=== PATIENT | male | born 1970 | race Two or more races ===

== ENCOUNTER 2019-10-05 23:53 | Inpatient (IN) | payer MEDICAID, OTHER ==
[~2019-10-05] VITALS: Ht 175.3 cm; Wt 84.7 kg
[2019-10-06] MEDS ORDERED: SODIUM CHLORIDE 0.9% 1,000 ML IV ONE ×2 (00:16)
[2019-10-06] MEDS ORDERED: MAGNESIUM SULFATE 1GM/100ML 100 ML IV ONE (00:30)
[2019-10-06] MEDS ORDERED: ZINC SULFATE 220mg CAP or TAB PO ONE (00:30)
[2019-10-06] MEDS ORDERED: DexAMETHasone SOD PHOS 10MG/1ML VIAL INJ IV ONE (00:30)
[2019-10-06] MEDS ORDERED: DOXYCYCLINE 100 MG TAB/CAP PO ONE (00:30)
[2019-10-06] MEDS ORDERED: ASCORBIC ACID 500 MG TAB PO ONE (00:30)
[2019-10-06] MEDS ORDERED: HYDROcodone-ACET 5/325MG TAB PO PRN (01:45)
[2019-10-06] MEDS ORDERED: ACETAMINOPHEN 325 MG TAB PO PRN (01:45)
[2019-10-06] MEDS ORDERED: DOCUSATE SOD 100 MG CAP PO PRN (01:45)
[2019-10-06] MEDS ORDERED: ONDANSETRON HCL 4 MG/2 ML VIAL IV PRN (01:45)
[2019-10-06] MEDS ORDERED: MORPHINE SULF INJ 2 MG/ML SYRINGE 1ML IV PRN (01:45)
[2019-10-06] MEDS ORDERED: ACETAMINOPHEN 500 MG TAB PO PRN (01:45)
[2019-10-06] MEDS ORDERED: LORazepam 0.5 MG TAB PO PRN (01:45)
[2019-10-06 04:14] LABS: Basophils # (auto) 0 10 ^3/uL (0-0.2); Basophils % (auto) 0.3 % (0.0-2.0); Eosinophils # (auto) 0 10 ^3/uL (0-0.8); Hematocrit 41.6 % (41.0-53.0); Hemoglobin 14.1 g/dL (13.5-17.5); Lymphocytes # (auto) 0.2 10 ^3/uL (0.4-5.4); Lymphocytes % (auto) 1.9 % (10.0-50.0); Mean Corpuscular Hemoglobin 30.2 pg (28.0-32.0); Mean Corpuscular Hgb Conc. 33.8 g/dL (32.0-36.0); Mean Corpuscular Volume 89.6 fL (80.0-100.0); Monocytes # (auto) 0.3 10 ^3/uL (0-1.3); Monocytes % (auto) 3.3 % (0.0-12.0); Neutrophils # (auto) 8.6 10 ^3/uL (1.6-8.6); Neutrophils % (auto) 94.5 % (37.0-80.0); Platelet Count (auto) 174 10^3/uL (140-450); Red Blood Cells 4.65 10^6/uL (4.5-5.90); Red Cell Distribution Width 13.2 % (11.8-14.3); White Blood Cell 9.1 10^3/uL (4.4-10.8)
[2019-10-06 04:34] LABS: Albumin 2.8 g/dL (3.4-5.0); Anion Gap 7 (5-15); Blood Urea Nitrogen 20 mg/dL (7-18); Calcium 7.8 mg/dL (8.5-10.1); Carbon Dioxide 25 mmol/L (21-32); Chloride 102 mmol/L (98-107); Glucose 134 mg/dL (74-106); Potassium 3.4 mmol/L (3.5-5.1); Sodium 134 mmol/L (136-145)
[2019-10-06 04:41] LABS: Alanine Aminotransferase 42 U/L (16-61); Alkaline Phosphatase 59 U/L (45-117); Aspartate Aminotransferase 51 U/L (15-37); BUN/Creatinine Ratio 23.3; Bilirubin, Total 0.7 mg/dL (0.2-1.0); GFR African American 121 mL/min; GFR Non-African American 100 mL/min; Lactate Dehydrogenase 391 U/L (87-241); Total Protein 7.2 g/dL (6.4-8.2)
[2019-10-06 05:17] LABS: CRP High Sensitivity 34.68 mg/dL (< 0.3)
[2019-10-06] MEDS: ALBUTEROL SULF HFA 90MCG INH 200DOSE IN SCH ×3 (07:15→21:30)
[2019-10-06] MEDS: SODIUM CHLORIDE 0.9% 1,000 ML IV SCH ×2 (09:00→18:25)
[2019-10-06 09:04] VITALS: BP 139/80
[2019-10-06] MEDS ORDERED: POTASSIUM EFFERVESENT TAB 25 MEQ PO ONE (09:15)
[2019-10-06] MEDS: DOXYCYCLINE 100 MG TAB/CAP PO SCH ×2 (10:03→22:13)
[2019-10-06] MEDS: ASCORBIC ACID 1,000 MG TAB PO SCH (10:03)
[2019-10-06] MEDS: ZINC SULFATE 220mg CAP or TAB PO SCH (10:03)
[2019-10-06] MEDS: ENOXAPARIN SOD 40 MG/0.4 ML SYRINGE SC SCH (10:05)
[2019-10-06] MEDS: CHOLECALCIFEROL (VITD3) 1,000UNIT=25mCg TAB PO SCH (10:05)
[2019-10-06] MEDS: DexAMETHasone SOD PHOS 10MG/1ML VIAL INJ IV SCH ×2 (10:45→22:13)
[2019-10-06 20:28] LABS: Urine Bacteria NONE SEEN /hpf (None Seen); Urine Blood Negative /uL (Negative); Urine Specific Gravity 1.031 (1.001-1.035); Urine WBC <1 /hpf (0 - 3)
[2019-10-07 06:42] LABS: Basophils # (auto) 0 10 ^3/uL (0-0.2); Basophils % (auto) 0.2 % (0.0-2.0); Eosinophils # (auto) 0 10 ^3/uL (0-0.8); Hematocrit 41.6 % (41.0-53.0); Lymphocytes # (auto) 0.3 10 ^3/uL (0.4-5.4); Lymphocytes % (auto) 3.2 % (10.0-50.0); Mean Corpuscular Hemoglobin 30.3 pg (28.0-32.0); Mean Corpuscular Hgb Conc. 33.7 g/dL (32.0-36.0); Mean Corpuscular Volume 89.9 fL (80.0-100.0); Monocytes # (auto) 0.6 10 ^3/uL (0-1.3); Monocytes % (auto) 6.1 % (0.0-12.0); Neutrophils # (auto) 8.3 10 ^3/uL (1.6-8.6); Neutrophils % (auto) 90.5 % (37.0-80.0); Nucleated Red Blood Cells % 0.3 %; Platelet Count (auto) 210 10^3/uL (140-450); Red Blood Cells 4.63 10^6/uL (4.5-5.90); Red Cell Distribution Width 13.4 % (11.8-14.3); White Blood Cell 9.2 10^3/uL (4.4-10.8)
[2019-10-07 07:02] LABS: Albumin 2.6 g/dL (3.4-5.0); Calcium 8.3 mg/dL (8.5-10.1); Potassium 3.5 mmol/L (3.5-5.1)
[2019-10-07 07:08] LABS: Bilirubin, Total 0.5 mg/dL (0.2-1.0); Total Protein 6.9 g/dL (6.4-8.2)
--- NOTE | 2019-10-07 07:45 | NUR ---
Respiratory note: PATIENT PLACED ON RENTAL BIPAP FITTED WITH A MEDIUM FULL FACE MASK AND VENTILATED WITH THE CHARTED SETTINGS. SPO2 90%, LUNG SOUNDS DIM T/O. PATIENT TOLERATING BIPAP FAIR. BIPAP PLUGGED INTO RED OUTLET AND ALL ALARMS ARE SET AND AUDIBLE. WILL CONTINUE TO ASSESS PATIENT WELL BIPAP FUNCTION.
[2019-10-07 07:48] VITALS: BP 128/72
[2019-10-07] MEDS: ALBUTEROL SULF HFA 90MCG INH 200DOSE IN SCH ×3 (07:50→22:15)
[2019-10-07 10:27] VITALS: BP 126/72
[2019-10-07] MEDS ORDERED: POTASSIUM CHL 10 Meq TABLET PO ONE (11:15)
[2019-10-07] MEDS ORDERED: FUROSEMIDE 20 MG/2 ML VIAL IV ONE (11:15)
[2019-10-07] MEDS ORDERED: cefTRIAXone 1GM/50ML D5W 50 ML IV ONE (11:15)
[2019-10-07] MEDS: ENOXAPARIN SOD 40 MG/0.4 ML SYRINGE SC SCH (11:31)
[2019-10-07] MEDS: DOXYCYCLINE 100 MG TAB/CAP PO SCH ×2 (11:32→22:23)
[2019-10-07] MEDS: ZINC SULFATE 220mg CAP or TAB PO SCH (11:32)
[2019-10-07] MEDS: ASCORBIC ACID 1,000 MG TAB PO SCH (11:32)
[2019-10-07] MEDS: CHOLECALCIFEROL (VITD3) 1,000UNIT=25mCg TAB PO SCH (11:33)
[2019-10-07 14:27] VITALS: BP 131/68
--- NOTE | 2019-10-07 19:05 | NUR ---
Respiratory note: PT TAKEN OFF BIPAP AT THIS TIME SO THAT HE CAN EAT HIS DINNER TRAY. PLACED PT ON A 10L OXYMIZER, SP02 IS HOLDING AT 91-93%. NO DISTRESS NOTED AT AT THIS TIME. RN AWARE.
[2019-10-07 20:10] VITALS: BP 131/68
[2019-10-07 22:15] VITALS: BP 117/65
[2019-10-07] MEDS: DexAMETHasone 4 MG TAB PO SCH (22:23)
[2019-10-07] MEDS: cefTRIAXone 1GM/50ML D5W 50 ML IV SCH (22:23)
[2019-10-08 00:05] VITALS: BP 117/65
[2019-10-08 02:28] VITALS: BP 121/75
[2019-10-08] MEDS: ALBUTEROL SULF HFA 90MCG INH 200DOSE IN SCH ×3 (06:20→22:25)
--- NOTE | 2019-10-08 06:20 | NUR ---
Respiratory note: PT TAKEN OFF OF BIPAP, AND PLACED ON 12L OXYMIZER. SPO2 92% ON 82% FIO2, HR 61, RR 22, BS CLEAR/DIMINISHED BILATERALLY. PT GIVEN 1 PUFF ALBUTEROL (90MCG) GIVEN VIA MDI WITH CHAMBER. NO ADVERSE EFFECTS NOTED. PT STATED THAT HER PREFERS THE OXYMIZER, AND DOESN'T LIKE TO BIPAP MACHINE. PT TOLERATED CHANGE WELL. RN AWARE. WILL CONTINUE TO MONITOR PT.
[2019-10-08] MEDS: cefTRIAXone 1GM/50ML D5W 50 ML IV SCH ×2 (09:14→21:16)
[2019-10-08] MEDS: FUROSEMIDE 20 MG/2 ML VIAL IV SCH (09:56)
[2019-10-08] MEDS: ZINC SULFATE 220mg CAP or TAB PO SCH (09:57)
[2019-10-08] MEDS: DexAMETHasone 4 MG TAB PO SCH ×2 (09:58→22:18)
[2019-10-08] MEDS: POTASSIUM CHL 10 Meq TABLET PO SCH (10:00)
[2019-10-08] MEDS: ASCORBIC ACID 1,000 MG TAB PO SCH (10:01)
[2019-10-08] MEDS: DOXYCYCLINE 100 MG TAB/CAP PO SCH ×2 (10:01→22:17)
[2019-10-08] MEDS: CHOLECALCIFEROL (VITD3) 1,000UNIT=25mCg TAB PO SCH (10:01)
[2019-10-08] MEDS: ENOXAPARIN SOD 40 MG/0.4 ML SYRINGE SC SCH (10:02)
[2019-10-08] MEDS: hydrOXYchloroQUINE SULFATE 200 MG TAB PO SCH ×2 (11:15→22:18)
[2019-10-09] MEDS: ALBUTEROL SULF HFA 90MCG INH 200DOSE IN SCH ×3 (06:14→21:09)
[2019-10-09] MEDS: cefTRIAXone 1GM/50ML D5W 50 ML IV SCH ×2 (09:30→21:32)
[2019-10-09 09:41] VITALS: BP 123/78
[2019-10-09] MEDS: ZINC SULFATE 220mg CAP or TAB PO SCH (10:30)
[2019-10-09] MEDS: ASCORBIC ACID 1,000 MG TAB PO SCH (10:30)
[2019-10-09] MEDS: DexAMETHasone 4 MG TAB PO SCH (10:30)
[2019-10-09] MEDS: DOXYCYCLINE 100 MG TAB/CAP PO SCH ×2 (10:30→22:21)
[2019-10-09] MEDS: CHOLECALCIFEROL (VITD3) 1,000UNIT=25mCg TAB PO SCH ×2 (10:30→11:32)
[2019-10-09] MEDS: hydrOXYchloroQUINE SULFATE 200 MG TAB PO SCH ×2 (10:30→22:21)
[2019-10-09] MEDS: POTASSIUM CHL 10 Meq TABLET PO SCH (10:30)
[2019-10-09] MEDS: FUROSEMIDE 20 MG/2 ML VIAL IV SCH (11:28)
[2019-10-09] MEDS: ENOXAPARIN SOD 40 MG/0.4 ML SYRINGE SC SCH ×2 (11:28→22:22)
[2019-10-09] MEDS ORDERED: IPRATROPIUM IN SCH (14:00)
[2019-10-09] MEDS ORDERED: ALBUTEROL IN SCH (14:00)
[2019-10-09] MEDS: DexAMETHasone SOD PHOS 4 MG/1ML SDV INJ IV SCH (22:21)
[2019-10-10] VITALS (7 sets, daily range): BP systolic 94–110; BP diastolic 63–75
[2019-10-10] MEDS: ALBUTEROL SULF HFA 90MCG INH 200DOSE IN SCH ×3 (06:50→22:21)
[2019-10-10] MEDS: cefTRIAXone 1GM/50ML D5W 50 ML IV SCH ×2 (07:53→20:24)
[2019-10-10 08:14] LABS: Hematocrit 48.2 % (41.0-53.0); Hemoglobin 15.8 g/dL (13.5-17.5); Mean Corpuscular Hemoglobin 29.9 pg (28.0-32.0); Mean Corpuscular Hgb Conc. 32.9 g/dL (32.0-36.0); Mean Corpuscular Volume 90.9 fL (80.0-100.0); Platelet Count (auto) 296 10^3/uL (140-450); Red Cell Distribution Width 13.3 % (11.8-14.3); White Blood Cell 8.2 10^3/uL (4.4-10.8)
[2019-10-10 08:16] LABS: Basophils % (manual) 0 (0.0-2.0); Blast Cells 0; Eosinophils % (manual) 0 (0-7); Metamyelocytes % 0; Myelocytes % 0; Promyelocytes % 0; Reactive Lymphocytes 0
[2019-10-10 08:28] LABS: Band Neutrophils % (manual) 1; Lymphocytes % (manual) 13 (10.0-50.0); Monocytes % (manual) 10 (0-12)
[2019-10-10 08:30] LABS: Albumin 2.6 g/dL (3.4-5.0); Calcium 8.6 mg/dL (8.5-10.1); Potassium 4.5 mmol/L (3.5-5.1)
[2019-10-10 08:38] LABS: BUN/Creatinine Ratio 49.3; Bilirubin, Total 0.7 mg/dL (0.2-1.0); CRP High Sensitivity 5.75 mg/dL (< 0.3); Total Protein 7.3 g/dL (6.4-8.2)
[2019-10-10] MEDS: FUROSEMIDE 20 MG/2 ML VIAL IV SCH (10:55)
[2019-10-10] MEDS: DexAMETHasone SOD PHOS 4 MG/1ML SDV INJ IV SCH ×2 (10:55→21:18)
[2019-10-10] MEDS: DOXYCYCLINE 100 MG TAB/CAP PO SCH ×2 (10:56→21:18)
[2019-10-10] MEDS: POTASSIUM CHL 10 Meq TABLET PO SCH (10:56)
[2019-10-10] MEDS: ZINC SULFATE 220mg CAP or TAB PO SCH (10:56)
[2019-10-10] MEDS: ENOXAPARIN SOD 40 MG/0.4 ML SYRINGE SC SCH ×2 (10:56→21:18)
[2019-10-10] MEDS: hydrOXYchloroQUINE SULFATE 200 MG TAB PO SCH (10:56)
[2019-10-10] MEDS: ASCORBIC ACID 1,000 MG TAB PO SCH (10:56)
[2019-10-10] MEDS: TOCILIZUMAB 400 MG in SODIUM CHL 0.9% 80 ML IV SCH ×2 (11:30→23:01)
[2019-10-10] MEDS ORDERED: ACETAMINOPHEN 650 mg PER 20 mL UD PO ONE ×2 (11:45→22:45)
[2019-10-10] MEDS ORDERED: diphenhdrAMINE HCL 50 MG/1 ML VL IV ONE ×2 (11:45→22:45)
[2019-10-10] MEDS ORDERED: methylPREDNISolone SOD SUCC 40 MG/ML VL IV ONE ×2 (11:45→22:45)
[2019-10-10] MEDS ORDERED: IPRATROPIUM-ALBUTEROL 20mCg/100mCg INHALER IN SCH (14:00)
[2019-10-10] MEDS ORDERED: REMDESIVIR 200 MG in NS 210ml LOADING DOSE ADULT IV ONE ×2 (14:00→18:00)
--- NOTE | 2019-10-10 14:15 | NUR ---
Admit to [facility] admitted to [facility] via gurney on environmental monitoring specialist, and portable 02. Patient transfered to bed, connected to unit monitoring and high flow oxygen at 45L 90%, and weighed by bedscale. Patient oriented to RUI LIU, primary RN, unit, room, bed, and unit policies regarding patient care and visiting hours. Patient is on Novel Respiratory Isolation for COVID19. Bed in lowest posion, rails up x3 and call light/phone within reach. All questions and concerns addressed, patient verbalized understanding. Vital signs on admit: HR 73 BP 110/75 RR 20 O2sat 93% on high flow 45L 90%, TEMP 97.7F orally.
--- NOTE | 2019-10-10 18:54 | NUR ---
END OF SHIFT NOTE Patient resting in bed after eating dinner; no s/s of distress. Patient remains on high flow oxygen, 45L 90% with O2 sats 91%. Patient received first dose of Remdesivir in right hand #20 with no s/s of distress. Report to be given to NOC Ibis ZHENG.
--- NOTE | 2019-10-10 19:30 | NUR ---
OPENING NOTE REPORT RECEIVED FROM MYLES RN. THIS IS A POSITIVE COVID PATIENT ON NOVEL RESPIRATORY ISOLATION. PATIENT IS A/OX4, SLOVENIAN SPEAKING, CONNECTED TO CONTINUOUS BEDSIDE MONITORS. PATIENT IS ON HIGH FLOW NASAL CANNULA 45L, FIO2 90%, NO SOB OR DISTRESS AT THIS TIME. PHYSICAL ASSESSMENT DONE-SEE INTERVENTIONS. IV TO RIGHT HAND 20G INTACT AND PATENT. PATIENT ABLE TO TURN AND REPOSITION SELF IN BED. POC DISCUSSED, ALL QUESTIONS ANSWERED. CALL LIGHT WITHIN REACH.
[2019-10-10] MEDS ORDERED: [UNRECOGNIZED DRUG - OTHER] IV SCH (22:00)
--- NOTE | 2019-10-10 23:20 | NUR ---
FAMILY FAMILY MEMBER BJORN CALLED. CORRECT PASSWORD PROVIDED. UPDATE ON PATIENT STATUS GIVEN. ALL QUESTIONS/CONCERNS ADDRESSED.
[2019-10-11] VITALS (10 sets, daily range): BP systolic 96–115; BP diastolic 70–84
[2019-10-11 03:57] LABS: Albumin 2.5 g/dL (3.4-5.0); Calcium 8.5 mg/dL (8.5-10.1); Potassium 4.8 mmol/L (3.5-5.1)
[2019-10-11 04:00] LABS: BUN/Creatinine Ratio 52.6; Bilirubin, Total 0.6 mg/dL (0.2-1.0); Total Protein 7.3 g/dL (6.4-8.2)
[2019-10-11] MEDS: ALBUTEROL SULF HFA 90MCG INH 200DOSE IN SCH ×3 (06:05→22:25)
--- NOTE | 2019-10-11 06:55 | NUR ---
CLOSING PATIENT AWAKE AND RESTING COMFORTABLY IN BED CONNECTED TO CONTINUOUS BEDSIDE MONITORS. HIGH FLOW NASAL CANNULA AT 45L, FIO2 80%. NO SOB OR DISTRESS NOTED. CALL LIGHT WITHIN REACH. WILL ENDORSE CARE TO AM SHIFT MARCE JOHN.
[2019-10-11] MEDS: DexAMETHasone SOD PHOS 4 MG/1ML SDV INJ IV SCH ×2 (09:05→21:03)
[2019-10-11] MEDS: cefTRIAXone 1GM/50ML D5W 50 ML IV SCH ×2 (09:05→21:03)
[2019-10-11] MEDS: FUROSEMIDE 20 MG/2 ML VIAL IV SCH (09:05)
[2019-10-11] MEDS: POTASSIUM CHL 10 Meq TABLET PO SCH (09:06)
[2019-10-11] MEDS: ZINC SULFATE 220mg CAP or TAB PO SCH (09:06)
[2019-10-11] MEDS: ENOXAPARIN SOD 40 MG/0.4 ML SYRINGE SC SCH (09:07)
[2019-10-11] MEDS: ASCORBIC ACID 1,000 MG TAB PO SCH (09:07)
[2019-10-11] MEDS: CHOLECALCIFEROL (VITD3) 1,000UNIT=25mCg TAB PO SCH (09:07)
--- NOTE | 2019-10-11 13:39 | NUR ---
assessment Patient is a 49 year old male who is alert and oriented. Patients cognitive abilities are intact. Prior to admission patient lived home with family and functioned independently. Patient informed me he is able to care for his own ADLs. Per patient he will return home to his prior living arrangements post discharge and family will transport him home. Patient is Covid positive. Patients is also positive in room 245a. I informed patient i will continue to monitor his progress for home oxygen needs. Patients discharge needs to be determined closer to discharge. I informed patient he has a right to speak to a social insurance analyst regarding all care. I informed patient he has a right to participate in any and all discharge planning. Patient does not have a POA and advanced directive. I have offered patient information on POA and advanced directives. I informed the patient the advantages and benefits of having an Advanced Directive. Patient verbalized understanding and agreed to discharge plan. Addendum: 10/11/19 at 1342 by Chitra MORILLO Amended: Links added.
--- NOTE | 2019-10-11 13:50 | NUR ---
Respiratory note: FINAL HFNC CHECK. TITRATED FIO2 TO 70%. PT TOLERATING WELL. PT RECEIVED MDI TX, NO ADVERSE REACTION NOTED. GANESH WATER LEVEL ADEQUATE. WILL ENDORSE PT'S CARE TO NOC RT.
--- NOTE | 2019-10-11 14:38 | NUR ---
Nutrition Assessment Notes Please refer to link for full assessment notes. Est Energy needs: 9213-9324 kcals (20-23 kcal/kgBW) Est Protein needs: 66-83 gms/day (0.8-1.0 gm/kgBW) Will continue to monitor and reassess prn. Addendum: 10/11/19 at [address] Amended: Links added.
[2019-10-11] MEDS: REMDESIVIR 100mg in NS 230ml DAILYx4DAYS (NO VENT) IV SCH (17:27)
--- NOTE | 2019-10-11 17:48 | NUR ---
PT EDUCATION INFORMED MD ORDER FOR PRONE POSITION AND EDUCATED IS USE. PT DEMONSTRATED UNDERSTANDING.
--- NOTE | 2019-10-11 19:30 | NUR ---
OPENING NOTE REPORT RECEIVED FROM MYLES RN. THIS IS A POSITIVE COVID PATIENT ON NOVEL RESPIRATORY ISOLATION. PATIENT IS A/OX4, MALTESE SPEAKING, CONNECTED TO CONTINUOUS BEDSIDE MONITORS. PATIENT IS ON HIGH FLOW NASAL CANNULA 45L, FIO2 70%, NO SOB OR DISTRESS AT THIS TIME. PHYSICAL ASSESSMENT DONE-SEE INTERVENTIONS. IV TO RIGHT HAND 20G INTACT AND PATENT. PATIENT ABLE TO TURN AND REPOSITION SELF IN BED. POC DISCUSSED, ALL QUESTIONS ANSWERED. CALL LIGHT WITHIN REACH
[2019-10-12] VITALS (13 sets, daily range): BP systolic 99–121; BP diastolic 70–86
[2019-10-12 04:22] LABS: Albumin 2.7 g/dL (3.4-5.0); Calcium 8.5 mg/dL (8.5-10.1); Potassium 4.5 mmol/L (3.5-5.1)
[2019-10-12 04:26] LABS: BUN/Creatinine Ratio 59.5; Bilirubin, Total 0.6 mg/dL (0.2-1.0); Total Protein 7.5 g/dL (6.4-8.2)
--- NOTE | 2019-10-12 05:26 | NUR ---
AM CARE OFFERED PATIENT AM CARES SUCH LINEN AND GOWN CHANGE. PATIENT REFUSED AT THIS TIME. LEFT LINENS AND GOWN AT BEDSIDE FOR A LATER TIME. EDUCATED PATIENT TO CALL WHEN HE IS READY FOR A LINEN CHANGE.
[2019-10-12] MEDS: ALBUTEROL SULF HFA 90MCG INH 200DOSE IN SCH ×3 (06:21→22:27)
--- NOTE | 2019-10-12 06:47 | NUR ---
CLOSING PATIENT AWAKE, RESTING IN BED AND CONNECTED TO CONTINUOUS BEDSIDE MONITORS. PATIENT STILL ON HIGH FLOW 45L, FIO2 70%. NO SIGNS OF SOB OR DISTRESS. CALL LIGHT WITHIN REACH. WILL ENDORSE CARE TO DAYSHIFT RN.
--- NOTE | 2019-10-12 07:48 | NUR ---
OPENING SHIFT NOTE PATIENT SITTING UP IN BED WATCHING TELEVISION, NO DISTRESS NOTED, RESPIRATIONS EVEN AND UNLABORED - CURRENTLY ON HIGH FLOW AT 45 LITERS AND 70% FIO2. PATIENT DENIES PAIN OR DISCOMFORT AT THIS TIME - ONLY REQUESTING ICE WATER. FALL AND SAFETY PRECAUTIONS IN PLACE, ALL PERSONAL BELONGINGS WITHIN REACH. WILL CONTINUE TO MONITOR.
[2019-10-12] MEDS: ZINC SULFATE 220mg CAP or TAB PO SCH (09:38)
[2019-10-12] MEDS: ASCORBIC ACID 1,000 MG TAB PO SCH (09:38)
[2019-10-12] MEDS: CHOLECALCIFEROL (VITD3) 1,000UNIT=25mCg TAB PO SCH (09:38)
[2019-10-12] MEDS: DexAMETHasone SOD PHOS 4 MG/1ML SDV INJ IV SCH ×2 (09:39→21:01)
[2019-10-12] MEDS: cefTRIAXone 1GM/50ML D5W 50 ML IV SCH ×2 (09:39→21:01)
[2019-10-12] MEDS ORDERED: ENOXAPARIN SOD 40 MG/0.4 ML SYRINGE SC SCH (10:00)
--- NOTE | 2019-10-12 12:07 | NUR ---
PULMONOLOGY AT BEDSIDE DR DHILLON UPDATED ON PATIENT'S STATUS AND OXYGEN REQUIREMENT VIA HIGH FLOW. DOCTOR VERBALIZED UNDERSTANDING, Patti SANCHES AT BEDSIDE ALSO. ORDERS FOR DDIMER, CRP, FERRITIN FOR MONDAY RECEIVED.
[2019-10-12] MEDS ORDERED: DOXYCYCLINE 100 MG TAB/CAP PO ONE (17:15)
[2019-10-12] MEDS: REMDESIVIR 100mg in NS 230ml DAILYx4DAYS (NO VENT) IV SCH (18:16)
--- NOTE | 2019-10-12 19:01 | NUR ---
END OF SHIFT NOTE PATIENT RESTING IN BED WATCHING TELEVISION CURRENTLY ON 45 LITERS AND 60% FIO2. NO DISTRESS NOTED, RESPIRATIONS EVEN AND UNLABORED. ENDORSED CONTINUED CARE TO TURF KEEPER RN.
--- NOTE | 2019-10-12 20:00 | NUR ---
OPENING NOTE REPORT RECEIVED FROM MYLES RN. THIS IS A POSITIVE COVID PATIENT ON NOVEL RESPIRATORY ISOLATION. PATIENT IS A/OX4, VIETNAMESE SPEAKING, CONNECTED TO CONTINUOUS BEDSIDE MONITORS. PATIENT IS ON HIGH FLOW NASAL CANNULA 45L, FIO2 65%, NO SOB OR DISTRESS AT THIS TIME. PHYSICAL ASSESSMENT DONE-SEE INTERVENTIONS. IV TO RIGHT HAND 20G INTACT AND PATENT. PATIENT ABLE TO TURN AND REPOSITION SELF IN BED. POC DISCUSSED, ALL QUESTIONS ANSWERED. CALL LIGHT WITHIN REACH
[2019-10-12] MEDS: ENOXAPARIN SOD 40 MG/0.4 ML SYRINGE SC SCH (21:01)
--- NOTE | 2019-10-12 21:02 | NUR ---
INCENTIVE SPIROMETER PATIENT USING IS WHILE WATCHING TV. MAX LEVEL 500, PATIENT ENCOURAGED TO TAKE DEEPER BREATHS.
--- NOTE | 2019-10-12 22:57 | NUR ---
FAMILY PATIENTS FAMILY MEMBER CALLED. CORRECT PASSWORD PROVIDED. UPDATED ON PATIENT STATUS, ALL QUESTIONS ANSWERED.
[2019-10-13] VITALS: BP 114/82
[2019-10-13 02:20] VITALS: BP 109/78
[2019-10-13 04:00] VITALS: BP 108/80
[2019-10-13 04:35] LABS: Albumin 2.8 g/dL (3.4-5.0); Calcium 8.5 mg/dL (8.5-10.1); Potassium 4.7 mmol/L (3.5-5.1)
[2019-10-13 04:37] LABS: BUN/Creatinine Ratio 48.2
[2019-10-13 04:50] LABS: Bilirubin, Total 0.8 mg/dL (0.2-1.0); Total Protein 7.2 g/dL (6.4-8.2)
--- NOTE | 2019-10-13 06:11 | NUR ---
FAMILY PATIENTS FAMILY MEMBER CALLED. CORRECT PASSWORD PROVIDED. UPDATED ON PATIENT STATUS, ALL QUESTIONS ANSWERED.
[2019-10-13 06:31] VITALS: BP 106/79
[2019-10-13] MEDS: ALBUTEROL SULF HFA 90MCG INH 200DOSE IN SCH ×3 (06:31→21:37)
--- NOTE | 2019-10-13 06:31 | NUR ---
RESP MDI GIVEN BY RT, TOLERATED WELL. PT ON HFNC.
--- NOTE | 2019-10-13 07:11 | NUR ---
CLOSING PATIENT SLEEPING, CONNECTED TO CONTINUOUS BEDSIDE MONITORS. PATIENT REMAINS ON HIGH FLOW NASAL CANNULA 45L, FIO2 65%. NO SIGNS OF DISTRESS. REPORT ENDORSED TO DAYSHIFT MARCE MENA.
--- NOTE | 2019-10-13 07:35 | NUR ---
OPENING SHIFT NOTE PATIENT RESTING IN BED WITH EYES CLOSED, NO DISTRESS NOTED, RESPIRATIONS EVEN AND UNLABORED. PATIENT CURRENTLY ON HIGH FLOW 45 LITERS AND 65% FIO2, VSS AND DOCUMENTED. FALL, SAFETY AND ISOLATION PRECAUTIONS IN PLACE, ALL PERSONAL BELONGINGS WITHIN REACH INCLUDING CALL LIGHT. WILL CONTINUE TO MONITOR.
[2019-10-13] MEDS: DexAMETHasone SOD PHOS 4 MG/1ML SDV INJ IV SCH ×2 (09:40→22:00)
[2019-10-13] MEDS: cefTRIAXone 1GM/50ML D5W 50 ML IV SCH ×2 (09:40→20:49)
[2019-10-13] MEDS: ASCORBIC ACID 1,000 MG TAB PO SCH (09:40)
[2019-10-13] MEDS: ZINC SULFATE 220mg CAP or TAB PO SCH (09:40)
[2019-10-13] MEDS: DOXYCYCLINE 100 MG TAB/CAP PO SCH ×2 (09:40→22:00)
[2019-10-13] MEDS: CHOLECALCIFEROL (VITD3) 1,000UNIT=25mCg TAB PO SCH (09:41)
[2019-10-13] MEDS: ENOXAPARIN SOD 40 MG/0.4 ML SYRINGE SC SCH ×2 (09:41→22:00)
[2019-10-13 10:05] VITALS: BP 16/110
--- NOTE | 2019-10-13 13:00 | NUR ---
HOSPITALIST/PULMONOLOGY AT NURSE STATION DR GARZA AND DR DHILLON BOTH UPDATED ON PATIENT'S STATUS AND OXYGENATION REQUIREMENT OF 45 LITERS AND 65%. DOCTOR'S ALSO AWARE OF PATIENT REPORTING ACID REFLUX AND HICCUPS. DR GARZA ORDERED PROTONIX 40 MG IV DAILY WITH ONE DOSE NOW AND "WE WILL CONTINUE TO MONITOR THE HICCUPS". DR DAI ORDERED CONTINUED TITRATION OF OXYGENATION, HE SPOKE WITH Patti CANELA
--- NOTE | 2019-10-13 14:25 | NUR ---
RESP TITRATED HFNC TO 4OL 55% FIO2, MARCE MENA MADE AWARE OF CHANGES. PT TOLERATING CHANGES WELL. MDI GIVEN BY RT, TOLERATED WELL. WILL CONTINUE TO MONITOR ORDERED.
--- NOTE | 2019-10-13 15:30 | NUR ---
Family updated on pt status Family of [facility] updated on patient's status and condition after password verification. All questions and concerns addressed. Sister in law Elsie verbalized understanding.
[2019-10-13] MEDS ORDERED: PANTOPRAZOLE 40 MG/10 ML VIAL INJ IV ONE (17:15)
[2019-10-13] MEDS: REMDESIVIR 100mg in NS 230ml DAILYx4DAYS (NO VENT) IV SCH (17:59)
--- NOTE | 2019-10-13 19:10 | NUR ---
OPENING SHIFT RECEIVED REPORT FROM DAY SHIFT RN. ASSUMED CARE OF PATIENT. PATIENT IN BED EATING DINNER WITH NO SIGNS OR SYMPTOMS OF SOB, PAIN OR DISTRESS. CURRENTLY ON HIGH FLOW 40L / 55% FI02, 02 SAT - 96%. RIGHT HAND IV - CLEAN/DRY/INTACT. UPDATED PATIENT ON PLAN OF CARE. REPOSITIONED FOR COMFORT. BED IN LOWEST POSITION, SIDE RAILS UP X2. CALL LIGHT WITHIN REACH. WILL CONTINUE TO MONITOR.
--- NOTE | 2019-10-13 19:25 | NUR ---
Respiratory note: AT BEDSIDE IN FULL PPE, PT REMOVED FROM HIGH FLOW NASAL AND PLACED ON 12L OXYMIZER, RN AWARE. PT PRESENTING NO SIGNS OF RESPIRATORY DISTRESS. HR 72, SPO2 97% ON 82% FIO2, RR 20. WILL TITRATE FIO2 TOLERATED AND CONTINUE TO MONITOR.
[2019-10-13 20:00] VITALS: BP 115/72
[2019-10-14] VITALS (7 sets, daily range): BP systolic 80–117; BP diastolic 49–85
--- NOTE | 2019-10-14 03:00 | NUR ---
Respiratory note: FIO2 TITRATED TO 11L VIA OXYMIZER, RN AWARE. PT TOLERATING WELL. SPO2 NOTED 94%
[2019-10-14 04:22] LABS: Hemoglobin 18.3 g/dL (13.5-17.5)
[2019-10-14 04:27] LABS: Hematocrit 54.4 % (41.0-53.0); Mean Corpuscular Hemoglobin 30.4 pg (28.0-32.0); Mean Corpuscular Hgb Conc. 33.6 g/dL (32.0-36.0); Mean Corpuscular Volume 90.5 fL (80.0-100.0); Platelet Count (auto) 320 10^3/uL (140-450); Red Cell Distribution Width 13.3 % (11.8-14.3); White Blood Cell 9.2 10^3/uL (4.4-10.8)
[2019-10-14 04:35] LABS: Potassium 4.3 mmol/L (3.5-5.1)
[2019-10-14 04:42] LABS: Albumin 2.7 g/dL (3.4-5.0); BUN/Creatinine Ratio 42.6; Bilirubin, Total 0.7 mg/dL (0.2-1.0)
[2019-10-14 04:56] LABS: Basophils % (manual) 0 (0.0-2.0); Blast Cells 0; Eosinophils % (manual) 0 (0-7); Metamyelocytes % 0; Myelocytes % 0; Promyelocytes % 0; Reactive Lymphocytes 0
[2019-10-14 06:28] LABS: Band Neutrophils % (manual) 2; Lymphocytes % (manual) 10 (10.0-50.0); Monocytes % (manual) 10 (0-12)
[2019-10-14] MEDS: ALBUTEROL SULF HFA 90MCG INH 200DOSE IN SCH ×3 (06:53→22:08)
--- NOTE | 2019-10-14 06:53 | NUR ---
Respiratory note: PT AWAKE, AND ALERT. NO RESPIRATORY DISTRESS NOTED. SPO2 95% ON 10LM OXYMIZER 72% FIO2, HR 60, RR 19, BS CLEAR/DIMINISHED BILATERALLY. PT GIVEN 1 PUFF ALBUTEROL (90MCG) VIA MDI WITH CHAMBER. NO ADVERSE EFFECTS NOTED. NO FURTHER RESPIRATORY INTERVENTION NOTED. CHARTING COMPLETE FROM OUTSIDE OF PT ROOM PER COVID-19 PRECAUTIONS/PROTOCOL.
--- NOTE | 2019-10-14 07:20 | NUR ---
END OF SHIFT REPORT GIVEN TO DAY SHIFT RN. CARE ENDORSED.
--- NOTE | 2019-10-14 07:25 | NUR ---
REPORT REPORT RECEIVED FROM FABRICE RN, CARE ASSUMED. PT AWAKE AND ALERT WATCHING TV. NO S/S OF DISTRESS NOTED. VS STABLE AT THIS TIME.
--- NOTE | 2019-10-14 08:00 | NUR ---
INITIAL CONTACT PT OBSERVED RESTING IN HIGH FOWLERS. DENIES DISTRESS OR PAIN AT THIS TIME. AFEBRILE. VS STABLE AT THIS TIME. LUNGS CLEAR TO DIMINISHED. PT ON 10 L OXYMIZER, OXYGEN SATURATION 95%. PT EDUCATED ON IMPORTANCE OF INCENTIVE SPIROMETER EXERCISE. PT VERBALIZED UNDERSTANDING. SKIN INTACT. IV PRESENT. BED LOCKED IN LOWEST POSITION, CALL LIGHT WITHIN REACH. PT INSTRUCTED TO CALL FOR ASSISTANCE. PT VERBALIZED UNDERSTANDING. WILL CONTINUE TO MONITOR.
[2019-10-14] MEDS: cefTRIAXone 1GM/50ML D5W 50 ML IV SCH ×2 (09:02→20:30)
[2019-10-14] MEDS: DexAMETHasone SOD PHOS 4 MG/1ML SDV INJ IV SCH ×2 (09:44→22:07)
[2019-10-14] MEDS: PANTOPRAZOLE 40 MG/10 ML VIAL INJ IV SCH (09:44)
[2019-10-14] MEDS: ENOXAPARIN SOD 40 MG/0.4 ML SYRINGE SC SCH ×2 (09:45→22:06)
[2019-10-14] MEDS: DOXYCYCLINE 100 MG TAB/CAP PO SCH ×2 (09:45→22:06)
[2019-10-14] MEDS: ZINC SULFATE 220mg CAP or TAB PO SCH (09:45)
[2019-10-14] MEDS: ASCORBIC ACID 1,000 MG TAB PO SCH (09:45)
[2019-10-14] MEDS: CHOLECALCIFEROL (VITD3) 1,000UNIT=25mCg TAB PO SCH (09:45)
--- NOTE | 2019-10-14 10:20 | NUR ---
OXYGENATION PT STILL MAINTAINING OXYGEN SATURATION 95%, O2 DECREASED TO 8 L OXYMIZER. RT NOTIFIED. OXYGEN SATURATION 94%. WILL CONTINUE TO MONITOR. PT DENIES C/O PAIN OR DISTRESS AT THIS TIME.
--- NOTE | 2019-10-14 10:55 | NUR ---
MD VISIT DR.AHLUWALIA AGUILAR. MD AWARE OF OXYGEN STATUS AND CXR. ORDERS OBTAINED.
[2019-10-14] MEDS ORDERED: POTASSIUM EFFERVESENT TAB 25 MEQ PO ONE (12:30)
[2019-10-14] MEDS ORDERED: FUROSEMIDE 40 MG/4 ML VIAL IV ONE (12:30)
--- NOTE | 2019-10-14 13:59 | NUR ---
OXYGENATION PT STILL MAINTAINING OXYGEN SATURATION 95%, O2 DECREASED TO 5 L OXYMIZER. RT NOTIFIED. OXYGEN SATURATION 94%. WILL CONTINUE TO MONITOR. PT DENIES C/O PAIN OR DISTRESS AT THIS TIME.
--- NOTE | 2019-10-14 14:39 | NUR ---
Nutrition Followup Notes Wt: 85.4 kg Unable to speak to pt d/t pt is positive for COVID. Pt is currently on regular diet with inadequate PO of 25% x 4 per RN doc. Will continue to monitor PO status, skin status, pertinent labs and weight trends. Will f/u in 3-5 days. Est Energy needs: 5261-9245 kcals (20-23 kcal/kgBW), Est Protein needs: 66-83 gms/day (0.8-1.0 gm/kgBW). Will continue to monitor and reassess prn. LABS: BUN 40 H, CA 8.0 L, ALB 2.7 L GI: Pt has no BM reported constipated per RN doc. BS: 18 mod risk. Refer to wound assessment report for full details. PES: Altered nutrition related lab values aeb elev BUN, hyperglycemia, mod hypoalbuminemia r/t current medical condition Comments 1) Continue to closely monitor pt PO intake to meet at least 75% of meals. 2) Continue current plan of care
--- NOTE | 2019-10-14 16:54 | NUR ---
PT TRANSFER TO TELE PT TRANSFERRED TO ADS TELE UNIT VIA BED WITH OXYGEN AND ALL PERSONAL BELONGINGS. VS STABLE AT TRANSPORT.
[2019-10-14] MEDS: REMDESIVIR 100mg in NS 230ml DAILYx4DAYS (NO VENT) IV SCH (17:53)
--- NOTE | 2019-10-14 19:35 | NUR ---
Opening Shift Note Assumed care of patient, awake and alert oriented x4. No S/S of distress/SOB or pain noted. Instructed on POC and to call for assist PRN. Bed is in lowest locked position with bed rails up x2 and call light is within reach of the patient. Patient on 5 liters Oxymizer and tolerating well.
[2019-10-15 06:00] VITALS: BP 97/72
--- NOTE | 2019-10-15 07:00 | NUR ---
Opening Shift Note Assumed care of patient, awake and alert. No S/S of distress/SOB or pain. Instructed on POC and to call for assist PRN, will continue to monitor for changes Q1hr and PRN.
[2019-10-15 08:00] VITALS: BP 133/69
--- NOTE | 2019-10-15 09:10 | NUR ---
O2 TITRATION TITRATED PATIENT TO 4 L OXYMIZER. PATIENTS O2 SATURATION IS 94% NO S/S OF DISTRESS NOTED.
[2019-10-15] MEDS: cefTRIAXone 1GM/50ML D5W 50 ML IV SCH ×2 (09:15→20:37)
[2019-10-15] MEDS: FUROSEMIDE 20 MG/2 ML VIAL IV SCH (09:16)
[2019-10-15] MEDS: POTASSIUM EFFERVESENT TAB 25 MEQ PO SCH (09:16)
[2019-10-15] MEDS: PANTOPRAZOLE 40 MG/10 ML VIAL INJ IV SCH (09:16)
[2019-10-15] MEDS: ZINC SULFATE 220mg CAP or TAB PO SCH (09:16)
[2019-10-15] MEDS: CHOLECALCIFEROL (VITD3) 1,000UNIT=25mCg TAB PO SCH (09:17)
[2019-10-15] MEDS: DOXYCYCLINE 100 MG TAB/CAP PO SCH ×2 (09:17→22:18)
[2019-10-15] MEDS: ASCORBIC ACID 1,000 MG TAB PO SCH (09:17)
[2019-10-15] MEDS: ENOXAPARIN SOD 40 MG/0.4 ML SYRINGE SC SCH ×2 (09:17→22:18)
[2019-10-15] MEDS: ALBUTEROL SULF HFA 90MCG INH 200DOSE IN SCH ×3 (09:36→22:17)
[2019-10-15] MEDS: DexAMETHasone SOD PHOS 10MG/1ML VIAL INJ IV SCH ×2 (11:37→22:17)
[2019-10-15 12:00] VITALS: BP 121/71
[2019-10-15 13:00] VITALS: BP 92/66
--- NOTE | 2019-10-15 13:10 | NUR ---
O2 TITRATION TITRATED PATIENT TO 3L OXYMIZER. PATIENTS 02 SATURATION IS 96% NO S/S OF DISTRESS NOTED.
--- NOTE | 2019-10-15 14:01 | NUR ---
O2 TITRATION PLACED PATIENT ON 2 L OXYMIZER O2 SATURATION IS 94% NO S/S OF DISTRESS NOTED. IF PATIENTS SATURATIONS CONTINUE TO STAY ABOVE 92% I WILL PLACE HIM ON NASAL CANULA
--- NOTE | 2019-10-15 15:01 | NUR ---
O2 TITRATION PLACED PATIENT ON 2 L N/C PATIENTS O2 SATURATION IS 94% NO S/S OF DISTRESS.
[2019-10-15 17:00] VITALS: BP 121/71
--- NOTE | 2019-10-15 19:15 | NUR ---
Opening Shift Note Assumed care of patient. Patient is awake, alert, and oriented x 4. No S/S of respiratory distress/SOB, pain noted or reported. Respirations are regular and non-labored. Patient is on 2 lpm NC with SpO2 93%. Bed is in lowest locked position with bed rails up x 2, call light is within reach. POC discussed with the patient. Instructed to call for assistance PRN. Will continue to monitor Q1H or/and PRN.
[2019-10-15 22:00] VITALS: BP 111/76
[2019-10-16] MEDS: ALBUTEROL SULF HFA 90MCG INH 200DOSE IN SCH ×2 (00:01→15:56)
[2019-10-16 05:00] VITALS: BP 106/69
[2019-10-16 07:11] LABS: Potassium 4.2 mmol/L (3.5-5.1)
[2019-10-16 07:16] LABS: BUN/Creatinine Ratio 40.2; Calcium 8.6 mg/dL (8.5-10.1)
[2019-10-16 08:56] VITALS: BP 101/69
[2019-10-16] MEDS: cefTRIAXone 1GM/50ML D5W 50 ML IV SCH (10:01)
[2019-10-16] MEDS: PANTOPRAZOLE 40 MG/10 ML VIAL INJ IV SCH (10:01)
[2019-10-16] MEDS: ENOXAPARIN SOD 40 MG/0.4 ML SYRINGE SC SCH (10:02)
[2019-10-16] MEDS: CHOLECALCIFEROL (VITD3) 1,000UNIT=25mCg TAB PO SCH (10:02)
[2019-10-16] MEDS: DOXYCYCLINE 100 MG TAB/CAP PO SCH (10:02)
[2019-10-16] MEDS: ASCORBIC ACID 1,000 MG TAB PO SCH (10:02)
[2019-10-16] MEDS: POTASSIUM EFFERVESENT TAB 25 MEQ PO SCH (10:02)
[2019-10-16] MEDS: ZINC SULFATE 220mg CAP or TAB PO SCH (10:02)
[2019-10-16] MEDS: FUROSEMIDE 20 MG/2 ML VIAL IV SCH (10:03)
[2019-10-16 13:00] VITALS: BP 112/79
[2019-10-16] MEDS ORDERED: ALBUAER3 IN (14:51)
[2019-10-16] MEDS ORDERED: CHOL1000 PO (14:51)
[2019-10-16] MEDS ORDERED: DOX100T PO (14:51)
[2019-10-16] MEDS ORDERED: ASCO10003 PO (14:51)
[2019-10-16] MEDS ORDERED: FURO20TA3 PO (14:51)
--- NOTE | 2019-10-16 15:32 | NUR ---
D/C planning Regarding social service consult for home oxygen. Clinical information was faxed to [facility] requesting for oxygen to be deliver to front lob. Per Veronica with [facility] portable oxygen will be deliver to front lobby between 13:00-15:00 and concentrate oxygen to home. Regarding social service consult for transportation. Informed MARCE Whitlock private transportation will be between [phone] with [facility] . [facility] transportation was confirmed it will be [phone]. Informed MARCE Hemphill covering MARCE Whitlock. Received a follow up called from MARCE Hemphill at 15:36 advising me patient will transport him home.
--- NOTE | 2019-10-16 19:05 | NUR ---
Discharge instructions given as ordered. Encourage to follow up with PMD as instructed. All questions and concerns addressed. Patient verbalized understanding. Medication reconciliation form completed and copy given to patient. Patient has prescription in hands and oxygen for home O2. IV removed with catheter intact, pressure dressing applied. Telemetry unit returned to ICU. Patient taken to vehicle via wheelchair with all personal belongings, accompanied by staff. Family member waiting in front lobby for transportation paula. No distress noted at time of departure.
== END 2019-10-16 19:05 | disposition home or self-care (01) | DRG 720 ==
LOC: ER 23:53 → OVERFLOW 23:54 → DOU IN ICU 10-10 14:12 → TELE-E-ADS 10-14 17:00
PROVIDERS: ADMIT Hospitalist; ATTEND Internal Medicine Nephrology
PROC: 5A09357 Assistance with Respiratory Ventilation, Less than 24 Consecutive Hours, Continuous Positive Airway Pressure (ICD-10-PCS; principal; 2019-10-07)
PROC: 5A09357 Assistance with Respiratory Ventilation, Less than 24 Consecutive Hours, Continuous Positive Airway Pressure (ICD-10-PCS; 2019-10-08)
DX: A41.89 Other specified sepsis (principal); U07.1 COVID-19; J12.89 Other viral pneumonia; J96.01 Acute respiratory failure with hypoxia; R65.20 Severe sepsis without septic shock; E66.01 Morbid (severe) obesity due to excess calories; E87.6 Hypokalemia; E87.1 Hypo-osmolality and hyponatremia; R73.9 Hyperglycemia, unspecified; Z68.26 Body mass index [BMI] 26.0-26.9, adult
CPT/HCPCS: 36415; 36600; 71045; 80048; 80053; 80061; 81001; 82728; 82805; 83036; 83615; 83735; 84484; 85007; 85025; 85027; 85379; 86141; 93005; 94640; 94660; 99291; C9113; G0378; J0696; J1100